=== PATIENT | male | born 1980 | race Caucasian/White ===

== ENCOUNTER 2016-11-22 06:36 | Emergency (ER) | payer OTHER ==
[~2016-11-22] VITALS: Ht 170.2 cm; Wt 87.0 kg
[~2016-11-22 06:36] MED LIST: CIPRO500 MG PO; FLEXERIL10 MG PO; METHADONE10 MG PO; ULTRAM50 MG PO; ZOFRAN4 MG PO
[2016-11-22 07:21] LABS: POINT-OF-CARE METER ID UU13113778
[2016-11-22] MEDS ORDERED: METHADONE10 MG PO (07:39)
[2016-11-22 08:02] LABS: HEMATOCRIT 44.2 % (38.0-50.0); MCH 29.5 PG (29.0-34.0); MCHC 34.2 G/DL (30.0-36.0); MCV 86.5 FL (86-99); MEAN PLAT.VOLUME 10.4 uM^3 (9.0-12.4); PLATELET COUNT 181 K/uL (156-360); RBC DIS.WIDTH-CV 11.3 % (11.8-14.6); RBC DIS.WIDTH-SD 36.1 % (39-53); RED BLOOD COUNT 5.11 M/uL (4.00-5.50); WHITE BLOOD COUNT 6.2 K/uL (4.1-10.2)
[2016-11-22 08:12] LABS: CHLORIDE 105 mEq/L (99-109); POTASSIUM 4.3 mEq/L (3.7-5.4); SODIUM 138 mEq/L (136-147)
[2016-11-22 08:14] LABS: GLUCOSE 113 mg/dL (70-99)
[2016-11-22 08:15] LABS: ANION GAP 8 MEQ/L (2-14)
[2016-11-22 08:16] LABS: TOTAL BILIRUBIN 0.5 mg/dL (0.0-1.0)
[2016-11-22 08:17] LABS: ALKALINE PHOSPHATASE 55 IU/L (3-129)
[2016-11-22 08:18] LABS: GFR ESTIMATE (CALCULATED) > 59 mL/min/
[2016-11-22 08:19] LABS: UREA NITROGEN (BUN) 17 mg/dL (9-23)
[2016-11-22 08:21] LABS: LIPASE 99 U/L (1.0-51.0)
[2016-11-22] MEDS ORDERED: ZOFRAN ODT4 MG PO (08:47)
[2016-11-22 09:06] VITALS: BP 120/67
== END 2016-11-22 09:06 | disposition home or self-care (01) ==
LOC: EME 06:36
PROVIDERS: Nurse Practitioner Family
DX: R11.0 Nausea (principal); R74.8 Abnormal levels of other serum enzymes; Z86.19 Personal history of other infectious and parasitic diseases; R42 Dizziness and giddiness; Z73.3 Stress, not elsewhere classified; F17.200 Nicotine dependence, unspecified, uncomplicated
CPT/HCPCS: 80053; 82948; 83690; 85027; 93005; 99281; 99284

== ENCOUNTER 2017-02-12 10:39 | Emergency (ER) | payer OTHER ==
[~2017-02-12] VITALS: Ht 170.2 cm; Wt 83.6 kg
[~2017-02-12 10:39] MED LIST changes: +ZOFRAN ODT4 MG PO
[2017-02-12 12:06] VITALS: BP 129/74
== END 2017-02-12 12:07 | disposition home or self-care (01) ==
LOC: EME 10:39
DX: F14.10 Cocaine abuse, uncomplicated (principal); F17.200 Nicotine dependence, unspecified, uncomplicated
CPT/HCPCS: 99281; 99283

== ENCOUNTER 2017-03-27 16:51 | Observation (INO) | payer OTHER ==
[~2017-03-27] VITALS: Ht 170.2 cm; Wt 86.3 kg
[2017-03-27 18:26] LABS: HEMATOCRIT 42.4 % (38.0-50.0); MCH 30.4 PG (29.0-34.0); MCHC 34.4 G/DL (30.0-36.0); MCV 88.1 FL (86-99); MEAN PLAT.VOLUME 10.2 uM^3 (9.0-12.4); PLATELET COUNT 167 K/uL (156-360); RBC DIS.WIDTH-CV 11.4 % (11.8-14.6); RBC DIS.WIDTH-SD 36.5 % (39-53); RED BLOOD COUNT 4.81 M/uL (4.00-5.50); WHITE BLOOD COUNT 6.7 K/uL (4.1-10.2)
[2017-03-27 18:35] LABS: CHLORIDE 105 mEq/L (99-109); POTASSIUM 4.1 mEq/L (3.7-5.4); SODIUM 143 mEq/L (136-147)
[2017-03-27 18:36] LABS: GLUCOSE 123 mg/dL (70-99)
[2017-03-27 18:38] LABS: ANION GAP 9 MEQ/L (2-14)
[2017-03-27 18:40] LABS: GFR ESTIMATE (CALCULATED) > 59 mL/min/
[2017-03-27 18:41] LABS: UREA NITROGEN (BUN) 12 mg/dL (9-23)
[2017-03-27 18:48] LABS: TROP-I INTERPRETATION NEGATIVE; TROPONIN-I < 0.01 ng/mL (0.0-0.30)
[2017-03-27 20:51] LABS: TROP-I INTERPRETATION NEGATIVE; TROPONIN-I < 0.01 ng/mL (0.0-0.30)
[2017-03-27 22:01] LABS: TOTAL BILIRUBIN 0.3 mg/dL (0.0-1.0)
[2017-03-27 22:02] LABS: ALKALINE PHOSPHATASE 59 IU/L (3-129)
[2017-03-27 22:04] LABS: DIRECT BILIRUBIN 0.1 mg/dL (0.0-0.3)
[2017-03-27 22:05] LABS: LIPASE 26 U/L (1.0-51.0)
[2017-03-27] MEDS ORDERED: VISINE MAX REDN15 ML BOTH EYES (22:22)
[2017-03-27 23:01] VITALS: BP 125/68
[2017-03-27 23:48] LABS: MAGNESIUM 2.4 mg/dL (1.3-2.7)
[2017-03-27 23:52] LABS: SERUM ETHYL ALCOHOL < 10 mg/dL
[2017-03-28 03:29] LABS: TROP-I INTERPRETATION NEGATIVE; TROPONIN-I < 0.01 ng/mL (0.0-0.30)
[2017-03-28 03:34] LABS: HDL CHOLESTEROL 29 MG/DL (Desirable>=40); LDL CHOLESTEROL 63 mg/dL (Desirable<100); NON-HDL CHOLESTEROL 139 mg/dL (Desirable<160); TOTAL CHOLESTEROL 168 mg/dL (Desirable<200); TRIGLYCERIDES 381 MG/DL (Normal: <150)
[2017-03-28 03:48] VITALS: BP 113/64
[2017-03-28 08:45] VITALS: BP 137/84
[2017-03-28 10:54] LABS: TROP-I INTERPRETATION NEGATIVE; TROPONIN-I 0.02 ng/mL (0.0-0.30)
[2017-03-28 10:58] VITALS: BP 149/85
[2017-03-28] MEDS ORDERED: NICOTINE PATCH1 EAC2 TD (13:16)
[2017-03-28] MEDS ORDERED: PRILOSEC OTC20 MG PO (13:17)
== END 2017-03-28 14:15 | disposition home or self-care (01) ==
LOC: EME 16:51 → EDOF 21:33 → 5WEST 21:33 → ENRESERV 21:38 → 5WEST 22:43 → ENPENDDIS 03-28 → 5WEST 03-28 14:15
PROVIDERS: Physician Assistant; Physician Assistant Medical
DX: R07.89 Other chest pain (principal); Z82.49 Family history of ischemic heart disease and other diseases of the circulatory system; F19.20 Other psychoactive substance dependence, uncomplicated; F17.210 Nicotine dependence, cigarettes, uncomplicated; F10.10 Alcohol abuse, uncomplicated; F41.9 Anxiety disorder, unspecified; Z86.19 Personal history of other infectious and parasitic diseases; F11.10 Opioid abuse, uncomplicated; F14.10 Cocaine abuse, uncomplicated; R53.1 Weakness; R42 Dizziness and giddiness; Z83.3 Family history of diabetes mellitus; Z88.8 Allergy status to other drugs, medicaments and biological substances; Z79.82 Long term (current) use of aspirin
CPT/HCPCS: 71020; 71275; 80048; 80061; 80076; 81003; 83690; 83735; 84484; 85027; 93005; 99281; 99285; G0378; G0480; J7030